=== PATIENT | male | born 1990 | race Caucasian/White ===

== ENCOUNTER 2017-07-02 18:57 | Emergency (ER) | payer SELFPAY ==
[~2017-07-02] VITALS: Ht 172.7 cm; Wt 82.5 kg
[2017-07-02 19:02] VITALS: BP 149/84; PULSE 80; RESP 18; TEMP 98.4; O2SAT 97
[2017-07-02 19:21] VITALS: BP 128/76; PULSE 79; RESP 18; TEMP 97; O2SAT 97
[2017-07-02] MEDS ORDERED: ETOMIDATE 20 MG/10 ML VIAL IV PUSH ONE (19:30)
--- NOTE | 2017-07-02 20:10 | RADRPT ---
EXAM DATE/TIME: 07/02/2017 19:40 [facility] COMPARISON: No previous studies available for comparison. INDICATIONS : Right shoulder pain. MEDICAL HISTORY : Previous right shoulder dislocation x3 SURGICAL HISTORY : None. ENCOUNTER: Initial ACUITY: 1 day PAIN SCORE: 10/10 LOCATION: Right upper extremity FINDINGS: There is an anterior joint dislocation of the right shoulder. The bony structures appear to be grossl y intact. CONCLUSION: Anterior joint dislocation. Kev Raygoza MD on July 02, 2017 at 20:07 Board Certified Radiologist. This report was verified electronically.
[2017-07-02 20:23] VITALS: O2SAT 100
--- NOTE | 2017-07-02 20:30 | PD ---
HPI Chief Complaint: Injury Time Seen by Provider: 19:18 Travel History International Travel<30 days: No Contact w/Intl Traveler<30days: No Traveled to known affect area: No History of Present Illness HPI The patient is a 26-year-old male that states he dislocated his right shoulder at 4 PM while trying to catch a football. His right shoulder was apparently abducted and externally rotated slightly. He has suffered 2 previous anterior dislocations of that same shoulder in the past. He was told in the that they have a procedure to prevent recurrent dislocations and I also told him about this procedure. He denies any numbness, weakness or radiation of pain. He denies any other injury. PFSH Past Medical History Inguinal Hernia: Yes Influenza Vaccination: No Social History Alcohol Use: Yes (2-3 drinks monthly) Tobacco Use: No Substance Use: No Allergies-Medications (Allergen,Severity, Reaction): Coded Allergies: No Known Allergies (Verified Allergy, Unknown, 07/02/17) Review of Systems Except as stated in HPI: all other systems reviewed are Neg Physical Exam Narrative GENERAL: Well-nourished, well-developed patient in moderate apparent distress with his right shoulder discomfort. His vital signs show blood pressure 149/84 but are otherwise normal. SKIN: Focused skin assessment warm/dry. HEAD: Normocephalic. EYES: No scleral icterus. No injection or drainage. NECK: Supple, trachea midline. No JVD or lymphadenopathy. CARDIOVASCULAR: Regular rate and rhythm without murmurs, gallops, or rubs. RESPIRATORY: Breath sounds equal bilaterally. No accessory muscle use. GASTROINTESTINAL: Abdomen soft, non-tender, nondistended. MUSCULOSKELETAL: No cyanosis, or edema. There is squaring of the shoulder and obvious anterior dislocation of the right shoulder. Good distal capillary refill, radial pulses and pinprick over the axillary musculocutaneous areas are present. He has good warmth on the right hand. BACK: Nontender without obvious deformity. No CVA tenderness. Data Data Last Documented VS Vital Signs Date Time Temp Pulse Resp B/P (MAP) Pulse Ox O2 Delivery O2 Flow Rate FiO2 07/02/17 20:23 100 6.00 07/02/17 19:21 97.0 79 18 128/76 (93) Room Air Orders Orders Etomidate Inj (Amidate Inj) (07/02/17 19:30) Shoulder, Limited(2vws) (2/9/18 19:37) Splint Or Brace Apply/Monitor (07/02/17 20:30) Shoulder, Limited(2vws) (07/02/17 20:32) [facility] Medical Decision Making Medical Screen Exam Complete: Yes Emergency Medical Condition: Yes Medical Record Reviewed: Yes Interpretation(s) Prereduction films of the right shoulder show no fracture and do show an anterior dislocation. Differential Diagnosis Anterior dislocation right shoulder, fracture right shoulder, subluxation right shoulder Narrative Course The patient has anterior dislocation of the right shoulder. This was easily reduced. He is told about the procedure to prevent recurrent dislocation of the shoulder. He should see an orthopedic doctor about this. Procedures Procedure Narrative The patient was given 20 of etomidate and the shoulder with very little traction was easily reduced. This occurred at 8:25 PM. Diagnosis Primary Impression: Recurrent anterior dislocation of right shoulder Additional Instructions: As we discussed, when you get insurance please consider seeing orthopedics to get this shoulder fixed so that he will not have recurrent dislocations. Med/Other Pt SpecificInfo: No Change to Meds Disposition: 01 DISCHARGE HOME Condition: Stable Kenroy Alfonso MD Jul 02, 2017 20:30
--- NOTE | 2017-07-02 20:47 | RADRPT ---
EXAM DATE/TIME: 07/02/2017 20:38 [facility] COMPARISON: SHOULDER RIGHT LTD (2VWS), July 02, 2017, 19:40. INDICATIONS : Post reduction right shoulder. MEDICAL HISTORY : Previous right shoulder dislocation x3 SURGICAL HISTORY : None. ENCOUNTER: Subsequent ACUITY: 1 day PAIN SCORE: 0/10 LOCATION: Right upper extremity FINDINGS: The previously noted anterior joint dislocation has been satisfactorily reduced. There is now good al ignment at the right shoulder joint. The bony structures are grossly intact. CONCLUSION: Satisfactory post reduction images. Kev Raygoza MD on July 02, 2017 at 20:45 Board Certified Radiologist. This report was verified electronically.
[2017-07-02 21:47] VITALS: BP 106/62
== END 2017-07-02 21:50 | disposition home or self-care (01) ==
LOC: PHED 18:57
DX: M24.411 Recurrent dislocation, right shoulder (principal); Y93.61 Activity, american tackle football
CPT/HCPCS: 23650; 73030

== ENCOUNTER 2017-07-07 07:26 | Emergency (ER) | payer SELFPAY ==
[~2017-07-07] VITALS: Ht 172.7 cm; Wt 82.1 kg
[2017-07-07 07:34] VITALS: BP 132/72; PULSE 53; RESP 16; TEMP 97.5; O2SAT 99
[2017-07-07] MEDS ORDERED: SODIUM CHLORIDE 0.9% FLUSH 10 ML FLUSH IV FLUSH PRN (08:00)
[2017-07-07 08:05] VITALS: O2SAT 98
--- NOTE | 2017-07-07 08:26 | RADRPT ---
EXAM DATE/TIME: 07/07/2017 08:11 [facility] COMPARISON: SHOULDER RIGHT LTD (2VWS), July 02, 2017, 20:38. INDICATIONS : Pain in right shoulder. Patient states he dislocated his shoulder 07/02/2017, was sleeping w/o sling this morning & must have moved arm wrong & deveolped sharp shoulder pain like a few days ago. MEDICAL HISTORY : Multiple shoulder dislocations. SURGICAL HISTORY : None. ENCOUNTER: Initial ACUITY: 1 day PAIN SCORE: 10/10 LOCATION: Right shoulder FINDINGS: 2 views of the right shoulder reveal an anterior dislocation at the glenohumeral joint. No fracture o bserved. Clavicle and scapula are intact. Soft tissues are unremarkable. CONCLUSION: Anterior glenohumeral dislocation. Edwardo Israel Jr., MD on July 07, 2017 at 8:22 Board Certified Radiologist. This report was verified electronically.
[2017-07-07] MEDS ORDERED: ONDANSETRON HCL 4 MG/2 ML VIAL IV PUSH ONE (08:30)
[2017-07-07] MEDS ORDERED: PROPOFOL 200 MG/20 ML AMP IV ONE (08:30)
[2017-07-07] MEDS ORDERED: MORPHINE SULFATE 4 MG/ML INJ IV PUSH ONE (08:30)
--- NOTE | 2017-07-07 08:59 | PD ---
Physical Exam Narrative I was asked by Dr. Chanel to perform conscious sedation for shoulder reduction. Patient is a 27 year old male with no medical issues. He has had several dislocations of his shoulder in the past. Data Data Last Documented VS Vital Signs Date Time Temp Pulse Resp B/P (MAP) Pulse Ox O2 Delivery O2 Flow Rate FiO2 07/07/17 08:05 98 Room Air 07/07/17 07:34 97.5 53 16 132/72 (92) Orders Orders Iv Access Insert/Monitor (07/07/17 07:49) Ecg Monitoring (07/07/17 07:49) Oximetry (07/07/17 07:49) NPO (07/07/17 07:49) Sodium Chloride 0.9% Flush (Ns Flush) (07/07/17 08:00) Shoulder, Limited(2vws) (07/07/17 07:49) Morphine Inj (Morphine Inj) (07/07/17 08:30) Ondansetron Inj (Zofran Inj) (07/07/17 08:30) Propofol 200 Mg/20 Ml Inj (Diprivan 200 (07/07/17 08:30) Shoulder, Limited(2vws) (07/07/17 ) MDM Supervised Visit with HARDIK: No Procedures Procedure Narrative After the risks and benefits were discussed the following procedure was performed: MODERATE SEDATION: The patient was placed on a skidway man and pulse oximetry. An ambu bag and suction was immediately available at bedside. The patient was monitored by the nurse. Oxygen saturation , heart rate and blood pressure were monitored. Procedural sedation was acheived using propofol. The patient was observed until awake and alert. Procedural Sedation time in attendance was 15 minutes. Molly Sanders MD Jul 07, 2017 08:59
[2017-07-07 09:04] VITALS: BP 118/68; PULSE 52; RESP 16; O2SAT 99
[2017-07-07 09:05] VITALS: O2SAT 99
--- NOTE | 2017-07-07 09:11 | PD ---
HPI Chief Complaint: Injury Time Seen by Provider: 07:44 Travel History International Travel<30 days: No Contact w/Intl Traveler<30days: No Traveled to known affect area: No History of Present Illness HPI This is an otherwise healthy 27-year-old male who presents for possible right shoulder dislocation. Patient is left-hand dominant. He states that when he rolled over in bed, he felt his right shoulder pop out. He was seen recently for shoulder dislocation. He states that his shoulder had been starting to feel better so he had taken off the sling last night to sleep. He denies any focal weakness, numbness, tingling. Symptoms are mild in severity. Sore in nature. He has not yet followed up with orthopedic surgeon as directed when he was seen here on his last visit. He has been otherwise well recently without fever, chills, cough, congestion. No prior treatment today for this pain. The pain is aggravated by movement. Patient states that he had part of a muffin at 4:30 AM, he has otherwise been nothing by mouth since last night. [facility] Past Medical History Medical History: Denies Significant Hx Inguinal Hernia: Yes Musculoskeletal: Yes (right shoulder dislocations) Tetanus Vaccination: > 5 Years Influenza Vaccination: No Past Surgical History Other Surgery: Yes (hernia repair) Social History Alcohol Use: Yes (2-3 drinks monthly) Tobacco Use: No Substance Use: Yes (marijuana. Patient denies IV drug abuse) Allergies-Medications (Allergen,Severity, Reaction): Coded Allergies: No Known Allergies (Verified Allergy, Unknown, 07/07/17) Reported Meds & Prescriptions Reported Meds & Active Scripts Active No Active Prescriptions or Reported Medications Review of Systems Except as stated in HPI: all other systems reviewed are Neg Physical Exam Narrative GENERAL: Alert, well nourished, well appearing patient resting on the bed in no acute distress. Vital Signs reviewed SKIN: Focused skin assessment warm/dry. HEAD: Atraumatic. Normocephalic. EYES: Pupils equal and round. No scleral icterus. No injection or drainage. ENT: No nasal bleeding or discharge. Mucous membranes pink and moist. NECK: Trachea midline. No JVD. Spontaneous, painless full range of motion with no meningismus CARDIOVASCULAR: Regular rate and rhythm. No murmur appreciated. Extremities warm and well perfused with bounding peripheral pulses RESPIRATORY: No accessory muscle use. Clear to auscultation. Breath sounds equal bilaterally. Breathing easily and speaking in full sentences GASTROINTESTINAL: Abdomen soft, non-tender, nondistended. Normal bowel sounds. No rigid, rebound, guarding MUSCULOSKELETAL: No clubbing. No cyanosis. No edema. Compartments are soft. Right upper extremity: Patient has tenderness at right shoulder. The right humeral head is not palpated in the fossa. Sensation intact and entire right upper extremity, including over the deltoid. Bounding right radial pulse. Painless full range of motion of right hand and elbow. He has decreased range of motion at right shoulder. NEUROLOGICAL: Awake and alert. No obvious cranial nerve deficits. Motor grossly within normal limits. Normal speech. Sensation intact. Normal gait Data Data Last Documented VS Vital Signs Date Time Temp Pulse Resp B/P (MAP) Pulse Ox O2 Delivery O2 Flow Rate FiO2 07/07/17 09:05 99 2.00 07/07/17 09:04 52 16 118/68 (85) Nasal Cannula 07/07/17 07:34 97.5 Orders Orders Iv Access Insert/Monitor (07/07/17 07:49) Ecg Monitoring (07/07/17 07:49) Oximetry (07/07/17 07:49) NPO (07/07/17 07:49) Sodium Chloride 0.9% Flush (Ns Flush) (07/07/17 08:00) Shoulder, Limited(2vws) (07/07/17 07:49) Morphine Inj (Morphine Inj) (07/07/17 08:30) Ondansetron Inj (Zofran Inj) (07/07/17 08:30) Propofol 200 Mg/20 Ml Inj (Diprivan 200 (07/07/17 08:30) Shoulder, Limited(2vws) (07/07/17 ) MDM Medical Decision Making Medical Screen Exam Complete: Yes Emergency Medical Condition: Yes Medical Record Reviewed: Yes Interpretation(s) Last 24 hours Impressions Shoulder X-Ray 07/07/17 0736 Signed Impressions: Service Date/Time: Friday, July 07, 2017 08:11 - CONCLUSION: Anterior glenohumeral dislocation. Edwardo Israel Jr., MD Postreduction x-ray shows successful reduction with normal anatomic alignment Differential Diagnosis Recurrent right anterior shoulder dislocation, subluxation, Hill-Sachs deformity , fracture Narrative Course The patient was given a dose of morphine for pain. X-ray was performed which shows anterior shoulder dislocation. Procedural sedation was performed by Dr. Sanders and I reduce the patient's dislocation easily. Patient tolerated this well. He remains neurovascularly intact after sling placement. He was counseled extensively regarding the importance of close outpatient follow-up with orthopedic surgeon. Mandatory referral was placed. Patient understands it is his response ability to establish his follow-up. Patient understands the importance of close outpatient follow-up. He understands he may require further testing and treatment as an outpatient. He understands strict return indications. He is comfortable with this plan and eager to go home. Upon discharge: Patient is awake, alert, appropriate, immobility with a steady gait. Procedures Procedure Narrative Procedure: Right shoulder dislocation reduction Performing physician: Mariana Chanel MD Pre-and post procedural diagnosis: Anterior right shoulder dislocation Please see separate note regarding procedural sedation. Written consent was obtained. Patient was given procedural sedation. His right shoulder dislocation was then easily reduced on first attempt with gentle downward traction and external rotation. Patient was then placed in a sling. He remained neurovascularly intact after procedure and sling placement. Patient tolerated this well. Procedure lasted 10 minutes. Diagnosis Primary Impression: Recurrent dislocation, right shoulder Referrals: Rusty Garza MD 3 days Patient Instructions: General Instructions, Moderate Sedation (ED), Narcotic given in the ED, Shoulder Dislocation (ED) Additional Instructions: Use sling as directed. Use Naprosyn with food for pain. Follow-up with orthopedic surgeon as directed. It is very important that you establish this follow-up. You may require further testing and treatment as an outpatient. Med/Other Pt SpecificInfo: Prescription(s) given Scripts Naproxen (Naprosyn) 500 Mg Tab 500 MG PO BID for Pain for 5 Days, #10 TAB 0 Refills Prov: Mariana Chanel MD 07/07/17 Disposition: 01 DISCHARGE HOME Condition: Stable Mariana Chanel MD Jul 07, 2017 09:11
--- NOTE | 2017-07-07 09:13 | RADRPT ---
EXAM DATE/TIME: 07/07/2017 08:59 [facility] COMPARISON: SHOULDER RIGHT LTD (2VWS), July 07, 2017, 8:11. INDICATIONS : Post reduction. MEDICAL HISTORY : Multiple shoulder dislocations. SURGICAL HISTORY : None. ENCOUNTER: Initial ACUITY: 1 day PAIN SCORE: 0/10 LOCATION: Right shoulder FINDINGS: Two view examination of the right shoulder demonstrates no evidence of fracture or dislocation. The glenohumeral and acromioclavicular joints are maintained. Bony mineralization is normal. CONCLUSION: Anatomic alignment Ant Rodriguez MD FACR on July 07, 2017 at 9:10 Board Certified Radiologist. This report was verified electronically.
[2017-07-07] MEDS ORDERED: NAPR500 PO (09:19)
[2017-07-07 10:00] VITALS: BP 122/74
== END 2017-07-07 10:01 | disposition home or self-care (01) ==
LOC: PHED 07:26
DX: M24.411 Recurrent dislocation, right shoulder (principal); X58.XXXA Exposure to other specified factors, initial encounter
CPT/HCPCS: 23650; 73030; 94770; 96374; 96375; 99152; 99283; J2270; J2405